=== PATIENT | female | born 1940 | race Caucasian/White ===

== ENCOUNTER 2020-03-25 22:44 | Emergency (ER) | payer OTHER, MEDICAID, SELFPAY ==
[~2020-03-25] VITALS: Ht 157.5 cm; Wt 90.7 kg
[2020-03-25 22:50] VITALS: BP_SYST 161
[2020-03-26 00:10] LABS: ANION GAP 5 (5-15); CALCIUM 9.5 mg/dL (8.4-11.0); CHLORIDE 104 mmol/L (98-107); CREATININE 0.62 mg/dL (0.55-1.30); GLUCOSE 157 mg/dL (70-99); SODIUM SERUM 142 mmol/L (136-145); UREA NITROGEN, BLOOD 14 mg/dL (8-21)
[2020-03-26 00:14] LABS: BASOPHILS # (AUTO) 0.1 K/uL (0.0-0.2); BASOPHILS % (AUTO) 1.4 % (0.0-2.0); EOSINOPHILS # (AUTO) 0.2 K/uL (0.0-0.4); EOSINOPHILS % (AUTO) 3.4 % (0.0-4.0); HEMATOCRIT 40.7 % (36-48); HEMOGLOBIN 13.7 g/dL (12.0-16.0); LYMPHOCYTES # (AUTO) 1.6 K/uL (1.0-5.5); LYMPHOCYTES % (AUTO) 34.3 % (20.5-51.5); MEAN CORPUSCULAR HEMOGLOBIN 30 pg (27-31); MEAN CORPUSCULAR HGB CONC 34 % (32-36); MEAN CORPUSCULAR VOLUME 90 fL (79.0-98.0); MONOCYTES # (AUTO) 0.3 K/uL (0.0-1.0); MONOCYTES % (AUTO) 6.8 % (1.7-9.3); NEUTROPHILS # (AUTO) 2.6 K/uL (1.8-7.7); NEUTROPHILS % (AUTO) 54.1 % (40.0-70.0); PLATELET COUNT (AUTO) 208 K/uL (130-430); RED BLOOD CELL COUNT(AUTO) 4.52 MIL/uL (4.2-6.2); WHITE BLOOD COUNT (AUTO) 4.7 K/uL (4.8-10.8)
[2020-03-26 00:16] LABS: ALANINE AMINOTRANSFERASE 17 U/L (12-78); ALBUMIN 3.4 g/dL (3.4-4.8); ASPARTATE AMINOTRANSFERASE 13 U/L (10-37); TOTAL BILIRUBIN 0.8 mg/dL (0.0-1.0)
[2020-03-26 00:16] LABS: BILIRUBIN,URINE NEGATIVE (NEGATIVE); CLARITY/URINE CLEAR (CLEAR); COLOR,URINE YELLOW (YELLOW); GLUCOSE,URINE NEGATIVE (NEGATIVE); KETONES,URINE NEGATIVE (NEGATIVE); LEUKOCYTE ESTERASE ,URINE 2+ (NEGATIVE); NITRITE, URINE POSITIVE (NEGATIVE); PH,URINE 5.5 (5.0-8.0); PROTEIN URINE TRACE (NEGATIVE); UROBILINOGEN,URINE 0.2 (0.2-1.0)
[2020-03-26 00:21] LABS: ACETAMINOPHEN < 1 ug/mL (1-30); ALCOHOL, BLOOD < 3 mg/dL (<10)
[2020-03-26 00:24] LABS: BLOOD, URINE TRACE (NEGATIVE)
[2020-03-26 00:28] LABS: BACTERIA,URINE MANY /HPF (None Seen); WBC,URINE 50-80 /HPF (0-3)
[2020-03-26 00:29] LABS: BARBITURATE, URINE NEGATIVE (NEG <=200); BENZODIAZEPINE, URINE NEGATIVE (NEG <=150); CANNABINOID, URINE NEGATIVE (NEG <=50); COCAINE, URINE NEGATIVE (NEG <=150); METHAMPHETAMINES SCREEN,URINE NEGATIVE (NEG <=500); PHENCYCLIDINE SCREEN,URINE NEGATIVE (NEG <=25); URINE AMPHETAMINE NEGATIVE (NEG <=500); URINE METHADONE NEGATIVE (NEG <=200)
[2020-03-26 00:30] LABS: OPIATE, URINE NEGATIVE (NEG <=100); UR TRICYCLIC ANTIDEPRESSANTS NEGATIVE (NEG <=300); URINE OXYCODONE SCREEN NEGATIVE (NEG <=100); URINE PROPOXYPHENE SCREEN NEGATIVE (NEG <=300)
[2020-03-26] MEDS ORDERED: cefTRIAXone 1 GM VIAL ONE (01:11)
[2020-03-26] MEDS ORDERED: cefTRIAXone 1 GM in LIDOCAINE 1%, 20 ML MDV 2.1 ML IM ONE (01:15)
[2020-03-26 01:46] VITALS: BP_SYST 152
== END 2020-03-26 01:42 | disposition home or self-care (01) ==
LOC: SED 22:44
DX: N39.0 Urinary tract infection, site not specified (principal); R45.6 Violent behavior; I10 Essential (primary) hypertension; Z88.8 Allergy status to other drugs, medicaments and biological substances; Z20.822 Contact with and (suspected) exposure to COVID-19
CPT/HCPCS: 36415; 80053; 80307; 81000; 85025; 87081; 87086; 87426; 93005; 96372; 99284; G0480; G0481; G0482; J0696

== ENCOUNTER 2020-04-03 09:31 | Inpatient (IN) | payer OTHER, MEDICAID, SELFPAY ==
[~2020-04-03] VITALS: Ht 154.9 cm; Wt 66.2 kg
[2020-04-03 11:30] VITALS: BP_SYST 136
[2020-04-03] MEDS ORDERED: SER100 PO ×2 (12:04)
[2020-04-03] MEDS ORDERED: MULT-1089 PO (12:04)
[2020-04-03] MEDS ORDERED: BACTROBAN TP (12:04)
[2020-04-03] MEDS ORDERED: ZOLP5TAB2 PO (12:04)
[2020-04-03] MEDS ORDERED: MIRT15TA7 PO (12:04)
[2020-04-03] MEDS ORDERED: LORA-258 PO (12:04)
[2020-04-03] MEDS ORDERED: HAL5 IM (12:04)
[2020-04-03] MEDS ORDERED: VALP500S4 PO (12:04)
[2020-04-03] MEDS ORDERED: IPRA4AER INH (12:04)
[2020-04-03] MEDS ORDERED: MOM PO (12:04)
[2020-04-03 12:09] VITALS: BP_SYST 136
[2020-04-03 12:58] LABS: BASOPHILS % (AUTO) 1.1 % (0.0-2.0); EOSINOPHILS # (AUTO) 0.1 K/uL (0.0-0.4); EOSINOPHILS % (AUTO) 2.1 % (0.0-4.0); HEMATOCRIT 39.1 % (36-48); HEMOGLOBIN 13.2 g/dL (12.0-16.0); LYMPHOCYTES # (AUTO) 1.5 K/uL (1.0-5.5); MEAN CORPUSCULAR HEMOGLOBIN 31 pg (27-31); MEAN CORPUSCULAR HGB CONC 34 % (32-36); MEAN CORPUSCULAR VOLUME 91 fL (79.0-98.0); MONOCYTES # (AUTO) 0.3 K/uL (0.0-1.0); MONOCYTES % (AUTO) 7.3 % (1.7-9.3); NEUTROPHILS # (AUTO) 2.6 K/uL (1.8-7.7); NEUTROPHILS % (AUTO) 57.5 % (40.0-70.0); PLATELET COUNT (AUTO) 196 K/uL (130-430); RED BLOOD CELL COUNT(AUTO) 4.31 MIL/uL (4.2-6.2); RED CELL DISTRIBUTION WIDTH 17.1 % (9.0-15.0); WHITE BLOOD COUNT (AUTO) 4.5 K/uL (4.8-10.8)
[2020-04-03 13:06] LABS: ANION GAP 4 (5-15); CALCIUM 9.1 mg/dL (8.4-11.0); CHLORIDE 105 mmol/L (98-107); CREATININE 0.73 mg/dL (0.55-1.30); GLUCOSE 90 mg/dL (70-99); POTASSIUM 4.2 mmol/L (3.5-5.1); SODIUM SERUM 141 mmol/L (136-145); UREA NITROGEN, BLOOD 13 mg/dL (8-21)
[2020-04-03 16:00] VITALS: BP_SYST 134; BP_SYST 99
[2020-04-03 16:02] VITALS: BP_SYST 134
[2020-04-03 20:00] VITALS: BP_SYST 131
[2020-04-03] MEDS ORDERED: HALOPERIDOL LACTATE 5 MG/ML VIAL IVP PRN (21:30)
[2020-04-04] VITALS: BP_SYST 126
[2020-04-04 08:15] VITALS: BP_SYST 103
[2020-04-04] MEDS: DIVALPROEX SODIUM 500 MG TABLET( DEPAKOTE) PO SCH ×3 (08:57→21:25)
[2020-04-04] MEDS: QUEtiapine FUMARATE 25 MG TABLET PO SCH ×3 (08:57→21:00)
[2020-04-04] MEDS ORDERED: HALOPERIDOL LACTATE 5 MG/ML VIAL ONE (13:16)
[2020-04-04 18:06] VITALS: BP_SYST 191
[2020-04-04 20:00] VITALS: BP_SYST 163
[2020-04-04] MEDS: QUEtiapine FUMARATE 100 MG TABLET PO SCH (21:00)
[2020-04-04] MEDS: MIRTAZAPINE 15 MG TABLET PO SCH ×2 (21:00→21:23)
[2020-04-05 00:44] VITALS: BP_SYST 167
[2020-04-05 06:00] VITALS: BP_SYST 167
[2020-04-05 08:00] VITALS: BP_SYST 153
[2020-04-05] MEDS: QUEtiapine FUMARATE 25 MG TABLET PO SCH (08:40)
[2020-04-05] MEDS: DIVALPROEX SODIUM 500 MG TABLET( DEPAKOTE) PO SCH ×2 (08:40→21:38)
[2020-04-05 12:00] VITALS: BP_SYST 182
[2020-04-05] MEDS: IPRATROPIUM/ALBUTEROL SULFATE 3 ML AMPUL.NEB (DUONEB) INH SCH (19:05)
[2020-04-05 20:00] VITALS: BP_SYST 141
[2020-04-05] MEDS: QUEtiapine FUMARATE 100 MG TABLET PO SCH (21:00)
[2020-04-05] MEDS: MIRTAZAPINE 15 MG TABLET PO SCH (21:00)
[2020-04-05] MEDS ORDERED: QUEtiapine FUMARATE 100 MG TABLET ONE (21:02)
[2020-04-05] MEDS ORDERED: HALOPERIDOL LACTATE 5 MG/ML VIAL ONE (21:15)
[2020-04-06 00:47] VITALS: BP_SYST 151
[2020-04-06] MEDS: IPRATROPIUM/ALBUTEROL SULFATE 3 ML AMPUL.NEB (DUONEB) INH SCH ×3 (01:00→13:00)
== END 2020-04-06 14:45 | DRG 305 ==
LOC: SMU 11:23 → STU 11:38 → SMU 04-06 08:24
PROVIDERS: ADMIT Internal Medicine Hospice and Palliative Medicine; ATTEND Internal Medicine Hospice and Palliative Medicine
DX: I10 Essential (primary) hypertension (principal); F23 Brief psychotic disorder; F25.9 Schizoaffective disorder, unspecified; Z20.822 Contact with and (suspected) exposure to COVID-19; F03.90 Unspecified dementia, unspecified severity, without behavioral disturbance, psychotic disturbance, mood disturbance, and anxiety; Z88.8 Allergy status to other drugs, medicaments and biological substances; Z91.041 Radiographic dye allergy status
CPT/HCPCS: 36415; 71045; 80048; 85025; 87081; 94760; G0378; J1630